=== PATIENT | female | born 2000 ===

== ENCOUNTER 2021-01-13 00:19 | Inpatient (IN) | payer MEDICAID ==
[2021-01-13] MEDS ORDERED: Tranexamic Acid 1,000 MG in Sodium Chloride 0.9% 100 ML IV PRN (01:31)
[2021-01-13] MEDS ORDERED: Sodium Chloride 0.9% 10 ML SDV IV PRN (01:31)
[2021-01-13] MEDS ORDERED: Misoprostol 200 MCG Tab PO PRN (01:31)
[2021-01-13] MEDS ORDERED: Sodium Chloride 0.9% 2.5 ML Syringe FLUSH PRN (01:31)
[2021-01-13] MEDS ORDERED: Lidocaine 1% 50 ML MDV INJECT PRN (01:31)
[2021-01-13] MEDS ORDERED: Water For Irrigation,Sterile 1,000 ML Container IRR PRN (01:31)
[2021-01-13] MEDS ORDERED: Misoprostol 25 MCG (1/4 of 100 MCG) Tab VAG PRN (01:31)
[2021-01-13] MEDS ORDERED: Nalbuphine 10 MG/1 ML Vial IVPUSH PRN (01:31)
[2021-01-13] MEDS ORDERED: Methylergonovine 0.2 MG/1 ML Amp IM PRN (01:31)
[2021-01-13] MEDS ORDERED: Sodium Chloride 0.9% 10 ML Syringe FLUSH PRN (01:31)
[2021-01-13] MEDS ORDERED: Carboprost Tromethamine 250 MCG/1 ML Amp IM PRN (01:31)
[2021-01-13] MEDS ORDERED: Terbutaline 1 MG/ML SDV SUBCUT PRN (01:31)
[2021-01-13] MEDS ORDERED: Misoprostol 25 MCG (1/4 of 100 MCG) Tab PO ONE ×2 (01:37→06:00)
[2021-01-13] MEDS ORDERED: Oxytocin/0.9 % Sodium Chloride 30 UNIT/500 ML BAG IV SCH ×2 (01:45)
[2021-01-13] MEDS: Misoprostol 25 MCG (1/4 of 100 MCG) Tab VAG PRN ×2 (06:05→10:19)
--- NOTE | 2021-01-13 08:31 | PCM.LDHP ---
L&D History of Present Illness - General Date of Service: 01/13/21 Admit Problem/Dx: Patient Status Order with Admit Dx/Problem 01/13/21 01:31 Patient Status [ADT] Routine Admission Diagnosis/Problem Admission Diagnosis/Problem 01/13/21 08:26 presenting to L&D at 39 2/7 weeks (DWAINE: 01/18/21 by LMP and early u/s) for elective induction of labor. A+, Rubella immune, GBS negative. notable for maternal obesity; otherwise uneventful course. Vertex by gildardo's and confirmed by bedside TAUS in-office. Source of Information: Patient History Limitations: Reports: No Limitations - Related Data Allergies/Adverse Reactions: Allergies Allergy/AdvReac Type Severity Reaction Status Date / Time Sulfa (Sulfonamide Allergy Unknown Rash Unverified 01/13/21 01:27 Antibiotics) Home Medications: Home Meds Pnv No.95/Ferrous Fum/Folic AC [ Tablet] 1 tab PO BEDTIME 10/09/20 [History] Magnesium 1 tab PO BEDTIME 11/16/20 [History] Past Medical History - Past Health History Medical/Surgical History: Denies Medical/Surgical History Social & Family History - Family History Family Medical History: No Pertinent Family History - Tobacco Use Tobacco Use Status *Q: Former Tobacco User Used Tobacco, but Quit: Yes Month/Year Tobacco Last Used: 12th week of preg Second Hand Smoke Exposure: Yes - Caffeine Use Caffeine Use: Reports: None - Recreational Drug Use Recreational Drug Use: No H&P Review of Systems - Review of Systems: Review Of Systems: See Below General: Reports: No Symptoms HEENT: Reports: No Symptoms Pulmonary: Reports: No Symptoms Cardiovascular: Reports: No Symptoms Gastrointestinal: Reports: No Symptoms Genitourinary: Reports: No Symptoms Musculoskeletal: Reports: No Symptoms Skin: Reports: No Symptoms Psychiatric: Reports: No Symptoms Neurological: Reports: No Symptoms Hematologic/Lymphatic: Reports: No Symptoms Immunologic: Reports: No Symptoms L&D Exam - Exam Exam: See Below - Vital Signs Weight: 230 lb - OB Specific Contraction Intensity: Mild to Moderate Movement: Active Heart Tones: Present Heart Rate (FHR) Variability: Moderate (6-25 bmp) Presentation: Vertex - Diamond Score Diamond Score Cervix Position: Anterior Diamond Score Consistency: Medium Diamond Score Effacement: 51-70% Diamond Score Dilation: 1-2 cm Diamond Score Infant's Station: -3 Diamond Score Total: 6 - Exam General: Alert, Oriented, Cooperative Lungs: Normal Respiratory Effort Cardiovascular: Regular Rate, Regular Rhythm GI/Abdominal Exam: Soft, Non-Tender Rectal Exam: Deferred Genitourinary: Deferred Back Exam: Normal Inspection, Full Range of Motion Extremities: Normal Inspection, Normal Range of Motion, Non-Tender, Normal Capillary Refill Skin: Warm, Dry, Intact Neurological: Strength Equal Bilateral, Normal Gait, Normal Speech, Normal Tone, Sensation Intact Psychiatric: Alert, Normal Affect, Normal Mood - Patient Data Lab Results Last 24 hrs: Laboratory Results - last 24 hr 01/13/21 01/13/21 01/13/21 Range/Units 01:15 01:15 01:15 WBC 9.71 (4.0-11.0) K/uL RBC 4.58 (4.30-5.90) M/uL Hgb 12.6 (12.0-16.0) g/dL Hct 38.2 (36.0-46.0) % MCV 83.4 (80.0-98.0) fL MCH 27.5 (27.0-32.0) pg MCHC 33.0 (31.0-37.0) g/dL RDW Std Deviation 44.5 (28.0-62.0) fl RDW Coeff of Hazel 15 (11.0-15.0) % Plt Count 224 (150-400) K/uL MPV 10.60 (7.40-12.00) fL Nucleated RBC % 0.0 /100WBC Nucleated RBCs # 0 K/uL SARS-CoV-2 RNA (JHONY) NEGATIVE (NEGATIVE) Blood Type A POSITIVE Antibody Screen NEGATIVE Result Diagrams: 01/13/21 01:15 - Problem List (1) Supervision of normal IUP (intrauterine ) in multigravida SNOMED Code(s): 711677308, 819823297, 475926851 ICD Code: Z34.80 - ENCOUNTER FOR SUPRVSN OF NORMAL , UNSP TRIMESTER Status: Acute Priority: High Current Visit: Yes Qualifiers: Trimester: third trimester Qualified Code(s): Z34.83 - Encounter for supervision of other normal , third trimester (2) Maternal obesity affecting , antepartum SNOMED Code(s): 956679837834, 418830581570 ICD Code: O99.210 - OBESITY COMPLICATING , UNSPECIFIED TRIMESTER Status: Acute Priority: High Current Visit: Yes Problem List Initiated/Reviewed/Updated: Yes Orders Last 24hrs: Active Orders 24 hr Category Date Time Status Patient Status [ADT] Routine ADT 01/13/21 01:31 Active Bedrest Bathroom Privileges [RC] ASDIRECTED Care 01/13/21 01:31 Active Communication Order [RC] ASDIRECTED Care 01/13/21 01:31 Active Communication Order [RC] ASDIRECTED Care 01/13/21 01:31 Active Communication Order [RC] ASDIRECTED Care 01/13/21 01:31 Active Heart Tones [RC] CONTINUOUS Care 01/13/21 01:31 Active Non Stress Test [RC] PER UNIT ROUTINE Care 01/13/21 01:31 Active May Shower [RC] ASDIRECTED Care 01/13/21 01:31 Active Notify Provider [RC] PRN Care 01/13/21 01:31 Active Notify Provider [RC] PRN Care 01/13/21 01:31 Active Notify Provider [RC] PRN Care 01/13/21 01:31 Active Notify Provider [RC] STAT Care 01/13/21 01:31 Active Oxygen Therapy [RC] ASDIRECTED Care 01/13/21 01:31 Active Up ad Елена [RC] ASDIRECTED Care 01/13/21 01:31 Active Vaginal Exam [RC] PRN Care 01/13/21 01:31 Active Vaginal Exam [RC] PRN Care 01/13/21 01:31 Active Vital Signs [RC] PER UNIT ROUTINE Care 01/13/21 01:31 Active Vital Signs [RC] PER UNIT ROUTINE Care 01/13/21 01:31 Active RPR (SYPHILIS SERO) W/ RFLX [REF] Routine Lab 01/13/21 01:15 Received Butorphanol [Stadol] Med 01/13/21 01:31 Active 1 mg IVPUSH Q1H PRN Carboprost Tromethamine [Hemabate DS] Med 01/13/21 01:31 Active 250 mcg IM ASDIRECTED PRN Lactated Ringers [Ringers, Lactated] 1,000 ml Med 01/13/21 01:45 Active IV ASDIRECTED Lidocaine 1% [Xylocaine 1%] Med 01/13/21 01:31 Active 50 ml INJECT ONETIME PRN Methylergonovine [Methergine] Med 01/13/21 01:31 Active 0.2 mg IM ASDIRECTED PRN Nalbuphine [Nubain] Med 01/13/21 01:31 Active 10 mg IVPUSH Q1H PRN Oxytocin/0.9 % Sodium Chloride [Oxytocin 30 Unit/500 ML Med 01/13/21 01:45 Active -NS] 30 unit in 500 ml IV TITRATE Oxytocin/0.9 % Sodium Chloride [Oxytocin 30 Unit/500 ML Med 01/13/21 01:45 Active -NS] 30 unit in 500 ml IV TITRATE Sodium Chloride 0.9% [Normal Saline] Med 01/13/21 01:31 Active 10 ml IV ASDIRECTED PRN Sodium Chloride 0.9% [Saline Flush] Med 01/13/21 01:31 Active 10 ml FLUSH ASDIRECTED PRN Sodium Chloride 0.9% [Saline Flush] Med 01/13/21 01:31 Active 2.5 ml FLUSH ASDIRECTED PRN Terbutaline [Brethine] Med 01/13/21 01:31 Active 0.25 mg SUBCUT ASDIRECTED PRN Tranexamic Acid [Cyklokapron] 1,000 mg Med 01/13/21 01:31 Active Sodium Chloride 0.9% [Normal Saline] 100 ml IV ONETIME Water For Irrigation,Sterile [Sterile Water for Med 01/13/21 01:31 Active Irrigation] 1,000 ml IRR ASDIRECTED PRN miSOPROStoL [Cytotec] Med 01/13/21 01:31 Active 200 mcg PO ONETIME PRN miSOPROStoL [Cytotec] Med 01/13/21 01:31 Active 25 mcg VAG ONETIME PRN miSOPROStoL [Cytotec] Med 01/13/21 01:31 Active 25 mcg VAG Q4H PRN Scalp Electrode [WOMSER] Per Unit Routine Oth 01/13/21 01:31 Ordered Medication Administration Instruction [OM.PC] Q3H Oth 01/13/21 01:45 Ordered Peripheral IV Insertion Adult [OM.PC] Routine Oth 01/13/21 01:31 Ordered Resuscitation Status Routine Resus Stat 01/13/21 01:31 Ordered Medication Orders Butorphanol Tartrate (Butorphanol 1 Mg/Ml Sdv) 1 mg IVPUSH Q1H PRN PRN Reason: Pain (severe 7-10) Carboprost Tromethamine (Carboprost Tromethamine 250 Mcg/1 Ml Amp) 250 mcg IM ASDIRECTED PRN PRN Reason: Post Hemorrhage Oxytocin/Sodium Chloride (Oxytocin 30 Unit/500 Ml-Ns) 30 unit in 500 mls @ 999 mls/hr IV TITRATE ROSALIA Tranexamic Acid 1,000 mg/ (Sodium Chloride) 110 mls @ 660 mls/hr IV ONETIME PRN PRN Reason: Bleeding Oxytocin/Sodium Chloride (Oxytocin 30 Unit/500 Ml-Ns) 30 unit in 500 mls @ 2 mls/hr IV TITRATE ROSALIA; Protocol Lactated Ringer's (Ringers, Lactated) 1,000 mls @ 150 mls/hr IV ASDIRECTED ROSALIA Lidocaine HCl (Lidocaine 1% 50 Ml Mdv) 50 ml INJECT ONETIME PRN PRN Reason: Laceration repair Methylergonovine Maleate (Methylergonovine 0.2 Mg/1 Ml Amp) 0.2 mg IM ASDIRECTED PRN PRN Reason: Post Hemorrhage Misoprostol (Misoprostol 200 Mcg Tab) 200 mcg PO ONETIME PRN PRN Reason: Post Hemorrhage Misoprostol (Misoprostol 25 Mcg (1/4 Of 100 Mcg) Tab) 25 mcg VAG ONETIME PRN PRN Reason: Cervical Ripening Last Admin: 01/13/21 01:56 Dose: 25 mcg Documented by: ERIKA Misoprostol (Misoprostol 25 Mcg (1/4 Of 100 Mcg) Tab) 25 mcg VAG Q4H PRN PRN Reason: Cervical Ripening Last Admin: 01/13/21 06:05 Dose: 25 mcg Documented by: ERIKA Nalbuphine HCl (Nalbuphine 10 Mg/1 Ml Vial) 10 mg IVPUSH Q1H PRN PRN Reason: Pain (severe 7-10) Sodium Chloride (Sodium Chloride 0.9% 10 Ml Syringe) 10 ml FLUSH ASDIRECTED PRN PRN Reason: Keep Vein Open Sodium Chloride (Sodium Chloride 0.9% 2.5 Ml Syringe) 2.5 ml FLUSH ASDIRECTED PRN PRN Reason: Keep Vein Open Sodium Chloride (Sodium Chloride 0.9% 10 Ml Sdv) 10 ml IV ASDIRECTED PRN PRN Reason: IV Use Sterile Water (Water For Irrigation,Sterile 1,000 Ml Container) 1,000 ml IRR ASDIRECTED PRN PRN Reason: delivery Terbutaline Sulfate (Terbutaline 1 Mg/Ml Sdv) 0.25 mg SUBCUT ASDIRECTED PRN PRN Reason: Tacysystole Assessment/Plan Comment:: Admit A: presenting to L&D at 39 2/7 weeks (DWAINE: 01/18/21 by LMP and early u/s) for elective induction of labor. A+, Rubella immune, GBS negative. notable for maternal obesity; otherwise uneventful course. Vertex by gildardo's and confirmed by bedside TAUS in-office. SVE at 0600 per nurse re port: 1-2 cm/60%/-3, medium, anterior P: Anticipate ; cytotec to pitocin PRN; epidural PRN; Dr. Correa updated.
[2021-01-13] MEDS ORDERED: Misoprostol 25 MCG (1/4 of 100 MCG) Tab PO PRN (09:57)
[2021-01-13] MEDS: Butorphanol 1 MG/ML SDV IVPUSH PRN ×2 (10:24→13:11)
[2021-01-13] MEDS: Lactated Ringers 1,000 ML IV SCH ×2 (13:11→14:10)
[2021-01-13] MEDS ORDERED: Ropivacaine HCl/PF 200 ML ONE (14:21)
[2021-01-13] MEDS ORDERED: fentaNYL 100 MCG/2 ML SDV ONE (14:21)
--- NOTE | 2021-01-13 14:46 | PCM.PREANE ---
Preanesthetic Assessment - Anesthesia/Transfusion/Family Hx Anesthesia History: Prior Anesthesia Without Reaction Family History of Anesthesia Reaction: No - Review of Systems Neurological: Other (History of difficult epidural placement with first delivery.) - Physical Assessment NPO Status Date: 01/13/21 NPO Status Time: 11:00 Height: 1.63 m Weight: 104.326 kg - Lab Values: Laboratory Last Values WBC 9.71 K/uL (4.0-11.0) 01/13/21 01:15 RBC 4.58 M/uL (4.30-5.90) 01/13/21 01:15 Hgb 12.6 g/dL (12.0-16.0) 01/13/21 01:15 Hct 38.2 % (36.0-46.0) 01/13/21 01:15 MCV 83.4 fL (80.0-98.0) 01/13/21 01:15 MCH 27.5 pg (27.0-32.0) 01/13/21 01:15 MCHC 33.0 g/dL (31.0-37.0) 01/13/21 01:15 RDW Std Deviation 44.5 fl (28.0-62.0) 01/13/21 01:15 RDW Coeff of Hazel 15 % (11.0-15.0) 01/13/21 01:15 Plt Count 224 K/uL (150-400) 01/13/21 01:15 MPV 10.60 fL (7.40-12.00) 01/13/21 01:15 Nucleated RBC % 0.0 /100WBC 01/13/21 01:15 Nucleated RBCs # 0 K/uL 01/13/21 01:15 SARS-CoV-2 RNA (JHONY) NEGATIVE (NEGATIVE) 01/13/21 01:15 Blood Type A POSITIVE 01/13/21 01:15 Antibody Screen NEGATIVE 01/13/21 01:15 - Allergies Allergies/Adverse Reactions: Allergies Allergy/AdvReac Type Severity Reaction Status Date / Time Sulfa (Sulfonamide Allergy Unknown Rash Verified 01/13/21 09:56 Antibiotics) - Acknowledgements Anesthesia Type Planned: Epidural Pt an Appropriate Candidate for the Planned Anesthesia: Yes Alternatives and Risks of Anesthesia Discussed w Pt/Guardian: Yes Pt/Guardian Understands and Agrees with Anesthesia Plan: Yes PreAnesthesia Questionnaire - Past Health History Medical/Surgical History: Denies Medical/Surgical History - SUBSTANCE USE Tobacco Use Status *Q: Former Tobacco User Tobacco Use Within Last Twelve Months: Cigarettes Second Hand Smoke Exposure: Yes Recreational Drug Use History: No - HOME MEDS Home Medications: Home Meds Pnv No.95/Ferrous Fum/Folic AC [ Tablet] 1 tab PO BEDTIME 10/09/20 [History] Magnesium 1 tab PO BEDTIME 11/16/20 [History] - CURRENT (IN HOUSE) MEDS Current Meds: Current Medications Butorphanol Tartrate (Butorphanol 1 Mg/Ml Sdv) 1 mg IVPUSH Q1H PRN PRN Reason: Pain (severe 7-10) Last Admin: 01/13/21 13:11 Dose: 1 mg Documented by: Carboprost Tromethamine (Carboprost Tromethamine 250 Mcg/1 Ml Amp) 250 mcg IM ASDIRECTED PRN PRN Reason: Post Hemorrhage Oxytocin/Sodium Chloride (Oxytocin 30 Unit/500 Ml-Ns) 30 unit in 500 mls @ 999 mls/hr IV TITRATE ROSALIA Tranexamic Acid 1,000 mg/ (Sodium Chloride) 110 mls @ 660 mls/hr IV ONETIME PRN PRN Reason: Bleeding Oxytocin/Sodium Chloride (Oxytocin 30 Unit/500 Ml-Ns) 30 unit in 500 mls @ 2 mls/hr IV TITRATE ROSALIA; Protocol Lactated Ringer's (Ringers, Lactated) 1,000 mls @ 150 mls/hr IV ASDIRECTED ROSALIA Last Admin: 01/13/21 14:10 Dose: 150 mls/hr Documented by: Lidocaine HCl (Lidocaine 1% 50 Ml Mdv) 50 ml INJECT ONETIME PRN PRN Reason: Laceration repair Methylergonovine Maleate (Methylergonovine 0.2 Mg/1 Ml Amp) 0.2 mg IM ASDIRECTED PRN PRN Reason: Post Hemorrhage Misoprostol (Misoprostol 200 Mcg Tab) 200 mcg PO ONETIME PRN PRN Reason: Post Hemorrhage Misoprostol (Misoprostol 25 Mcg (1/4 Of 100 Mcg) Tab) 25 mcg VAG ONETIME PRN PRN Reason: Cervical Ripening Last Admin: 01/13/21 01:56 Dose: 25 mcg Documented by: Misoprostol (Misoprostol 25 Mcg (1/4 Of 100 Mcg) Tab) 25 mcg VAG Q4H PRN PRN Reason: Cervical Ripening Last Admin: 01/13/21 10:19 Dose: 25 mcg Documented by: Misoprostol (Misoprostol 25 Mcg (1/4 Of 100 Mcg) Tab) 25 mcg PO Q4H PRN PRN Reason: cervical ripening Last Admin: 01/13/21 10:20 Dose: 25 mcg Documented by: Nalbuphine HCl (Nalbuphine 10 Mg/1 Ml Vial) 10 mg IVPUSH Q1H PRN PRN Reason: Pain (severe 7-10) Sodium Chloride (Sodium Chloride 0.9% 10 Ml Syringe) 10 ml FLUSH ASDIRECTED PRN PRN Reason: Keep Vein Open Sodium Chloride (Sodium Chloride 0.9% 2.5 Ml Syringe) 2.5 ml FLUSH ASDIRECTED PRN PRN Reason: Keep Vein Open Sodium Chloride (Sodium Chloride 0.9% 10 Ml Sdv) 10 ml IV ASDIRECTED PRN PRN Reason: IV Use Sterile Water (Water For Irrigation,Sterile 1,000 Ml Container) 1,000 ml IRR ASDIRECTED PRN PRN Reason: delivery Terbutaline Sulfate (Terbutaline 1 Mg/Ml Sdv) 0.25 mg SUBCUT ASDIRECTED PRN PRN Reason: Tacysystole Discontinued Medications Fentanyl (Fentanyl 100 Mcg/2 Ml Sdv) Confirm Administered Dose 200 mcg .ROUTE .STK-MED ONE Stop: 01/13/21 14:22 Ropivacaine (Naropin 0.2%) Confirm Administered Dose 200 mls @ as directed .ROUTE .STK-MED ONE Stop: 01/13/21 14:22 Misoprostol (Misoprostol 25 Mcg (1/4 Of 100 Mcg) Tab) 25 mcg PO ONETIME ONE Stop: 01/13/21 01:38 Last Admin: 01/13/21 01:56 Dose: 25 mcg Documented by: Misoprostol (Misoprostol 25 Mcg (1/4 Of 100 Mcg) Tab) 25 mcg PO ONETIME ONE Stop: 01/13/21 06:01 Last Admin: 01/13/21 06:05 Dose: 25 mcg Documented by:
--- NOTE | 2021-01-13 14:49 | PCM.PRNOTE ---
- Free Text/Narrative Note: Anes NOte Patient requests epidural for L&D. Sitting position. Level L3-L4 midline approach. Sterile technique, chloraprep scrub to lumbar area. Sterile fenestrated drape applied. Epidural space easily achieved single attempt with ease using PETRA technique. PETRA at 3 cm. Cath threaded 5 cm with ease. Cath secured a t skin using sterile clear adhesive dressing. Test 1432 3 cc 1.5% lido with epi negative. 1435 Load 10 cc 0.2% ropiviciane with 1 mcg cc fentanyl in slow divided doses. 1440 Pump started qith 190 cc same solution. Rate is 8 cc hr with 6 cc q 20 min prn bolus. Kell well. Time with patient [id number] Huey Whalen LEAD DENTAL ASSISTANT
[2021-01-13] MEDS ORDERED: Witch Hazel Medicated Pads 40/Jar TOP PRN (19:19)
[2021-01-13] MEDS ORDERED: Bisacodyl 10 MG Supp RECTAL PRN (19:19)
[2021-01-13] MEDS ORDERED: Ibuprofen 400 MG Tab PO PRN (19:19)
[2021-01-13] MEDS ORDERED: Docusate Sodium 100 MG Cap PO PRN (19:19)
[2021-01-13] MEDS ORDERED: oxyCODONE 5 MG Tab PO PRN (19:19)
[2021-01-13] MEDS ORDERED: Acetaminophen 500 MG Tab PO PRN (19:19)
[2021-01-13] MEDS ORDERED: Lanolin 100% Cream 7 GM Tube TOP PRN (19:19)
[2021-01-13] MEDS ORDERED: Benzocaine/Menthol 20%-0.5% Spray 78 GM Cannister TOP PRN (19:19)
--- NOTE | 2021-01-13 19:27 | PCM.DEL ---
L & D Note - General Info Date of Service: 01/13/21 Mother's Due Date: 01/18/21 - Delivery Note Labor: Augmented by ARM Cervical Ripening Method: Misoprostil Delivery Outcome: Livebirth Infant Delivery Method: Spontaneous Vaginal Delivery-Single Presentation: Left Occiput Anterior (DOMINGO) Nuchal Cord: None Anesthesia Type: Epidural Amniotic Fluid Description: Clear Episiotomy Type: None Laceration: None Cord: 3 Vessels Estimated Blood Loss: 100 Resuscitation Needed: No : Bulb Syringe Score 1 min: 8 Score 5 min: 9 Delivery Comments (Free Text/Narrative):: Dictation #[id number] - General Info Date of Service: 01/13/21 Admission Dx/Problem (Free Text): Patient Status Order with Admit Dx/Problem 01/13/21 01:31 Patient Status [ADT] Routine Admission Diagnosis/Problem Admission Diagnosis/Problem 01/13/21 08:26 presenting to L&D at 39 2/7 weeks (DWAINE: 01/18/21 by LMP and early u/s) for elective induction of labor. A+, Rubella immune, GBS negative. notable for maternal obesity; otherwise uneventful course. Vertex by gildardo's and confirmed by bedside TAUS in-office. - Patient Data Weight - Most Recent: 230 lb Lab Results Last 24 Hours: Laboratory Results - last 24 hr 01/13/21 01/13/21 01/13/21 Range/Units 01:15 01:15 01:15 WBC 9.71 (4.0-11.0) K/uL RBC 4.58 (4.30-5.90) M/uL Hgb 12.6 (12.0-16.0) g/dL Hct 38.2 (36.0-46.0) % MCV 83.4 (80.0-98.0) fL MCH 27.5 (27.0-32.0) pg MCHC 33.0 (31.0-37.0) g/dL RDW Std Deviation 44.5 (28.0-62.0) fl RDW Coeff of Hazel 15 (11.0-15.0) % Plt Count 224 (150-400) K/uL MPV 10.60 (7.40-12.00) fL Nucleated RBC % 0.0 /100WBC Nucleated RBCs # 0 K/uL SARS-CoV-2 RNA (JHONY) NEGATIVE (NEGATIVE) Blood Type A POSITIVE Antibody Screen NEGATIVE Med Orders - Current: Current Medications Butorphanol Tartrate (Butorphanol 1 Mg/Ml Sdv) 1 mg IVPUSH Q1H PRN PRN Reason: Pain (severe 7-10) Last Admin: 01/13/21 13:11 Dose: 1 mg Documented by: Carboprost Tromethamine (Carboprost Tromethamine 250 Mcg/1 Ml Amp) 250 mcg IM ASDIRECTED PRN PRN Reason: Post Hemorrhage Oxytocin/Sodium Chloride (Oxytocin 30 Unit/500 Ml-Ns) 30 unit in 500 mls @ 999 mls/hr IV TITRATE ROSALIA Tranexamic Acid 1,000 mg/ (Sodium Chloride) 110 mls @ 660 mls/hr IV ONETIME PRN PRN Reason: Bleeding Oxytocin/Sodium Chloride (Oxytocin 30 Unit/500 Ml-Ns) 30 unit in 500 mls @ 2 mls/hr IV TITRATE ROSALIA; Protocol Lactated Ringer's (Ringers, Lactated) 1,000 mls @ 150 mls/hr IV ASDIRECTED ROSALIA Last Admin: 01/13/21 14:10 Dose: 150 mls/hr Documented by: Lidocaine HCl (Lidocaine 1% 50 Ml Mdv) 50 ml INJECT ONETIME PRN PRN Reason: Laceration repair Methylergonovine Maleate (Methylergonovine 0.2 Mg/1 Ml Amp) 0.2 mg IM ASDIRECTED PRN PRN Reason: Post Hemorrhage Misoprostol (Misoprostol 200 Mcg Tab) 200 mcg PO ONETIME PRN PRN Reason: Post Hemorrhage Misoprostol (Misoprostol 25 Mcg (1/4 Of 100 Mcg) Tab) 25 mcg VAG ONETIME PRN PRN Reason: Cervical Ripening Last Admin: 01/13/21 01:56 Dose: 25 mcg Documented by: Misoprostol (Misoprostol 25 Mcg (1/4 Of 100 Mcg) Tab) 25 mcg VAG Q4H PRN PRN Reason: Cervical Ripening Last Admin: 01/13/21 10:19 Dose: 25 mcg Documented by: Misoprostol (Misoprostol 25 Mcg (1/4 Of 100 Mcg) Tab) 25 mcg PO Q4H PRN PRN Reason: cervical ripening Last Admin: 01/13/21 10:20 Dose: 25 mcg Documented by: Nalbuphine HCl (Nalbuphine 10 Mg/1 Ml Vial) 10 mg IVPUSH Q1H PRN PRN Reason: Pain (severe 7-10) Sodium Chloride (Sodium Chloride 0.9% 10 Ml Syringe) 10 ml FLUSH ASDIRECTED PRN PRN Reason: Keep Vein Open Sodium Chloride (Sodium Chloride 0.9% 2.5 Ml Syringe) 2.5 ml FLUSH ASDIRECTED PRN PRN Reason: Keep Vein Open Sodium Chloride (Sodium Chloride 0.9% 10 Ml Sdv) 10 ml IV ASDIRECTED PRN PRN Reason: IV Use Sterile Water (Water For Irrigation,Sterile 1,000 Ml Container) 1,000 ml IRR ASDIRECTED PRN PRN Reason: delivery Terbutaline Sulfate (Terbutaline 1 Mg/Ml Sdv) 0.25 mg SUBCUT ASDIRECTED PRN PRN Reason: Tacysystole Discontinued Medications Fentanyl (Fentanyl 100 Mcg/2 Ml Sdv) Confirm Administered Dose 200 mcg .ROUTE .STK-MED ONE Stop: 01/13/21 14:22 Last Admin: 01/13/21 16:46 Dose: Not Given Documented by: Ropivacaine (Naropin 0.2%) Confirm Administered Dose 200 mls @ as directed .ROUTE .STK-MED ONE Stop: 01/13/21 14:22 Last Admin: 01/13/21 16:46 Dose: Not Given Documented by: Misoprostol (Misoprostol 25 Mcg (1/4 Of 100 Mcg) Tab) 25 mcg PO ONETIME ONE Stop: 01/13/21 01:38 Last Admin: 01/13/21 01:56 Dose: 25 mcg Documented by: Misoprostol (Misoprostol 25 Mcg (1/4 Of 100 Mcg) Tab) 25 mcg PO ONETIME ONE Stop: 01/13/21 06:01 Last Admin: 01/13/21 06:05 Dose: 25 mcg Documented by: - Problem List Review Problem List Initiated/Reviewed/Updated: Yes - My Orders Last 24 Hours: My Active Orders 01/13/21 19:19 Acetaminophen [Tylenol Extra Strength] 1,000 mg PO Q4H PRN Acetaminophen [Tylenol Extra Strength] 500 mg PO Q4H PRN Benzocaine/Menthol [Dermoplast Pain Relief 20%-0.5% [place]] 78 gm TOP ASDIRECTED PRN Docusate Sodium [Colace] 100 mg PO Q12H PRN Ibuprofen [Motrin] 400 mg PO Q4H PRN Ibuprofen [Motrin] 800 mg PO Q6H PRN Lanolin [Lansinoh HPA] See Dose Instructions TOP ASDIRECTED PRN bisacodyL [Dulcolax] 10 mg RECTAL ONETIME PRN oxyCODONE 5 mg PO Q2H PRN witch Josep [Tucks] 1 pad TOP ASDIRECTED PRN 01/13/21 19:20 Patient Status [ADT] Routine May Shower [RC] ASDIRECTED Up ad Елена [RC] ASDIRECTED Vital Signs [RC] PER UNIT ROUTINE Assess Lochia [WOMSER] Per Unit Routine Assess Uterine Involution [WOMSER] Per Unit Routine Peripheral IV Discontinue [OM.PC] Routine 01/14/21 05:11 HEMOGLOBIN/HEMATOCRIT,HH [HEME] Timed - Assessment Assessment:: 20 year old s/p - Plan Plan:: Routine cares * Rh positive, rubella immune, GBS negative * PO pain medications ordered PRN * Regular diet as tolerated * Encourage fluid intake and ambulation when able * Plans to breast feed, nursing assistance as needed Dispo: stable. Admit to floor and anticipate routine cares.
--- NOTE | 2021-01-13 20:52 | OR ---
SURGEON: RO CORREA MD DATE OF PROCEDURE: 01/13/2021 PREOPERATIVE DIAGNOSES: 1. Term intrauterine gestation at 39 weeks 2 days. 2. Maternal obesity. POSTOPERATIVE DIAGNOSES: 1. Term intrauterine gestation at 39 weeks 2 days. 2. Maternal obesity. PROCEDURE: Spontaneous vaginal delivery. PRIMARY SURGEON: Ro Correa MD COLOR MAKER DYER: None. ANESTHESIA: Epidural. COMPLICATIONS: None known. ESTIMATED BLOOD LOSS: 100 mL. INDICATIONS: 20-year-old, 3, para 1. The patient presented to Labor and Delivery at midnight on 01/13/2021 for planned elective induction per Dr. Navarrete. FINDINGS: Normal-appearing female infant in cephalic presentation. Clear amniotic fluid. scores of 8 and 9, weight not yet available at time of dictation. Intact cervix, vagina, and perineal pretty. BRIEF DESCRIPTION OF PROCEDURE: The patient was admitted to Labor and Delivery early on the morning of 01/13/2021. She received three consecutive doses of vaginal Cytotec and labor progressed spontaneously. She received an epidural and AROM was performed shortly thereafter. The patient tolerated procedure well and clear fluid was noted. At approximately 1845, I was notified that the patient was completely dilated and feeling pressure the urge to push. With the patient in dorsal lithotomy position, she pushed well over three contractions and infant's head delivered in occiput anterior position, restitute DOMINGO. 's anterior shoulder delivered without difficulty, followed quickly by posterior shoulder and the rest of the 's body. After approximately 30 seconds, the umbilical cord was clamped and cut and handed off to waiting nursing staff per patient request. Arterial venous and cord blood gases were then obtained. The placenta was then expressed intact. Inspection of the cervix, vaginal pretty, and perineum was performed and noted to be intact. Fundal massage was then performed. Fundus noted to be located below the umbilicus and firm. EBL 100 mL. Sponge, lap, and needle count were correct x2. The patient tolerated the procedure well and is recovering in labor room with infant. NIRMAL / DAVID /[id number] MTDDenia
[2021-01-14] MEDS: Acetaminophen 500 MG Tab PO PRN ×3 (00:43→12:50)
[2021-01-14] MEDS: Ibuprofen 800 MG Tab PO PRN ×2 (03:54→16:28)
--- NOTE | 2021-01-14 05:43 | PCM.PNPP ---
- General Info Date of Service: 01/14/21 Admission Dx/Problem (Free Text): Patient Status Order with Admit Dx/Problem 01/13/21 01:31 Patient Status [ADT] Routine Admission Diagnosis/Problem Admission Diagnosis/Problem 01/13/21 08:26 presenting to L&D at 39 2/7 weeks (DWAINE: 01/18/21 by LMP and early u/s) for elective induction of labor. A+, Rubella immune, GBS negative. notable for maternal obesity; otherwise uneventful course. Vertex by gildardo's and confirmed by bedside TAUS in-office. Subjective Update: Resting comfortably in bed. Pain well controlled. Ambulating and voiding without difficulty. Lochia decreasing. Tolerating regular diet. baby, going well per patient. - General Info Date of Service: 01/14/21 - Patient Data Vital Signs - Most Recent: Last Vital Signs Temp 98.2 F 01/14/21 04:00 Pulse 86 01/14/21 04:00 Resp 17 01/14/21 04:00 BP 128/74 01/14/21 04:00 Pulse Ox 97 01/14/21 04:00 Weight - Most Recent: 230 lb Lab Results - Last 24 Hours: Laboratory Results - last 24 hr 01/13/21 Range/Units 19:06 Cord VBG pH 7.296 (7.25-7.45) Cord VBG Base Excess -5 (-10--2) Med Orders - Current: Current Medications Acetaminophen (Acetaminophen 500 Mg Tab) 500 mg PO Q4H PRN PRN Reason: Pain (mild 1-3) Acetaminophen (Acetaminophen 500 Mg Tab) 1,000 mg PO Q4H PRN PRN Reason: Pain (mild 1-3) Last Admin: 01/14/21 00:43 Dose: 1,000 mg Documented by: Benzocaine/Menthol (Benzocaine/Menthol 20%-0.5% Walsh 78 Gm Cannister) 0 gm TOP ASDIRECTED PRN PRN Reason: Perineal Comfort Measure Bisacodyl (Bisacodyl 10 Mg Supp) 10 mg RECTAL ONETIME PRN PRN Reason: Constipation Butorphanol Tartrate (Butorphanol 1 Mg/Ml Sdv) 1 mg IVPUSH Q1H PRN PRN Reason: Pain (severe 7-10) Last Admin: 01/13/21 13:11 Dose: 1 mg Documented by: Carboprost Tromethamine (Carboprost Tromethamine 250 Mcg/1 Ml Amp) 250 mcg IM ASDIRECTED PRN PRN Reason: Post Hemorrhage Docusate Sodium (Docusate Sodium 100 Mg Cap) 100 mg PO Q12H PRN PRN Reason: Constipation Emollient Ointment (Lanolin 100% Cream 7 Gm Tube) 0 gm TOP ASDIRECTED PRN PRN Reason: Sore Nipples Last Admin: 01/14/21 00:45 Dose: 1 tube Documented by: Oxytocin/Sodium Chloride (Oxytocin 30 Unit/500 Ml-Ns) 30 unit in 500 mls @ 999 mls/hr IV TITRATE ROSALIA Tranexamic Acid 1,000 mg/ (Sodium Chloride) 110 mls @ 660 mls/hr IV ONETIME PRN PRN Reason: Bleeding Oxytocin/Sodium Chloride (Oxytocin 30 Unit/500 Ml-Ns) 30 unit in 500 mls @ 2 mls/hr IV TITRATE ROSALIA; Protocol Lactated Ringer's (Ringers, Lactated) 1,000 mls @ 150 mls/hr IV ASDIRECTED ROSALIA Last Admin: 01/13/21 14:10 Dose: 150 mls/hr Documented by: Ibuprofen (Ibuprofen 400 Mg Tab) 400 mg PO Q4H PRN PRN Reason: Pain (mild 1-3) Ibuprofen (Ibuprofen 800 Mg Tab) 800 mg PO Q6H PRN PRN Reason: Pain (mild 1-3) Last Admin: 01/14/21 03:54 Dose: 800 mg Documented by: Lidocaine HCl (Lidocaine 1% 50 Ml Mdv) 50 ml INJECT ONETIME PRN PRN Reason: Laceration repair Methylergonovine Maleate (Methylergonovine 0.2 Mg/1 Ml Amp) 0.2 mg IM ASDIRECTED PRN PRN Reason: Post Hemorrhage Misoprostol (Misoprostol 200 Mcg Tab) 200 mcg PO ONETIME PRN PRN Reason: Post Hemorrhage Misoprostol (Misoprostol 25 Mcg (1/4 Of 100 Mcg) Tab) 25 mcg VAG ONETIME PRN PRN Reason: Cervical Ripening Last Admin: 01/13/21 01:56 Dose: 25 mcg Documented by: Misoprostol (Misoprostol 25 Mcg (1/4 Of 100 Mcg) Tab) 25 mcg VAG Q4H PRN PRN Reason: Cervical Ripening Last Admin: 01/13/21 10:19 Dose: 25 mcg Documented by: Misoprostol (Misoprostol 25 Mcg (1/4 Of 100 Mcg) Tab) 25 mcg PO Q4H PRN PRN Reason: cervical ripening Last Admin: 01/13/21 10:20 Dose: 25 mcg Documented by: Nalbuphine HCl (Nalbuphine 10 Mg/1 Ml Vial) 10 mg IVPUSH Q1H PRN PRN Reason: Pain (severe 7-10) Oxycodone HCl (Oxycodone 5 Mg Tab) 5 mg PO Q2H PRN PRN Reason: Pain (severe 7-10) Sodium Chloride (Sodium Chloride 0.9% 10 Ml Syringe) 10 ml FLUSH ASDIRECTED PRN PRN Reason: Keep Vein Open Sodium Chloride (Sodium Chloride 0.9% 2.5 Ml Syringe) 2.5 ml FLUSH ASDIRECTED PRN PRN Reason: Keep Vein Open Sodium Chloride (Sodium Chloride 0.9% 10 Ml Sdv) 10 ml IV ASDIRECTED PRN PRN Reason: IV Use Sterile Water (Water For Irrigation,Sterile 1,000 Ml Container) 1,000 ml IRR ASDIRECTED PRN PRN Reason: delivery Terbutaline Sulfate (Terbutaline 1 Mg/Ml Sdv) 0.25 mg SUBCUT ASDIRECTED PRN PRN Reason: Tacysystole Witch Juliette (Witch Juliette Medicated Pads 40/Jar) 1 pad TOP ASDIRECTED PRN PRN Reason: comfort care Discontinued Medications Fentanyl (Fentanyl 100 Mcg/2 Ml Sdv) Confirm Administered Dose 200 mcg .ROUTE .STK-MED ONE Stop: 01/13/21 14:22 Last Admin: 01/13/21 16:46 Dose: Not Given Documented by: Ropivacaine (Naropin 0.2%) Confirm Administered Dose 200 mls @ as directed .ROUTE .STK-MED ONE Stop: 01/13/21 14:22 Last Admin: 01/13/21 16:46 Dose: Not Given Documented by: Misoprostol (Misoprostol 25 Mcg (1/4 Of 100 Mcg) Tab) 25 mcg PO ONETIME ONE Stop: 01/13/21 01:38 Last Admin: 01/13/21 01:56 Dose: 25 mcg Documented by: Misoprostol (Misoprostol 25 Mcg (1/4 Of 100 Mcg) Tab) 25 mcg PO ONETIME ONE Stop: 01/13/21 06:01 Last Admin: 01/13/21 06:05 Dose: 25 mcg Documented by: - Infant Interaction Infant Disposition, : at Bedside Feeding: Breastfed ; Nursed Well Support Person: Significant Other - Recovery Exam Fundal Tone: Firm Fundal Level: 1 Fingerbreadths Below Umbilicus Fundal Placement: Midline Lochia Amount: Scant, Small Lochia Color: Rubra/Red Perineum Description: Intact, Minimal Bruising/Swelling Bladder Status: Voiding - Exam General: Alert Lungs: Normal Respiratory Effort Cardiovascular: Regular Rate GI/Abdominal Exam: Soft, Non-Tender Extremities: Normal Range of Motion, Non-Tender, Pedal Edema (1+) Skin: Warm, Dry, Intact Neurological: No New Focal Deficit Psy/Mental Status: Normal Mood - Problem List Review Problem List Initiated/Reviewed/Updated: Yes - My Orders Last 24 Hours: My Active Orders 01/13/21 19:19 Acetaminophen [Tylenol Extra Strength] 1,000 mg PO Q4H PRN Acetaminophen [Tylenol Extra Strength] 500 mg PO Q4H PRN Benzocaine/Menthol [Dermoplast Pain Relief 20%-0.5% Walsh] 0 gm TOP ASDIRECTED PRN Docusate Sodium [Colace] 100 mg PO Q12H PRN Ibuprofen [Motrin] 400 mg PO Q4H PRN Ibuprofen [Motrin] 800 mg PO Q6H PRN Lanolin [Lansinoh HPA] See Dose Instructions TOP ASDIRECTED PRN bisacodyL [Dulcolax] 10 mg RECTAL ONETIME PRN oxyCODONE 5 mg PO Q2H PRN witch Juliette [Tucks] 1 pad TOP ASDIRECTED PRN 01/13/21 19:20 Patient Status [ADT] Routine May Shower [RC] ASDIRECTED Up ad Елена [RC] ASDIRECTED Vital Signs [RC] PER UNIT ROUTINE Assess Lochia [WOMSER] Per Unit Routine Assess Uterine Involution [WOMSER] Per Unit Routine Peripheral IV Discontinue [OM.PC] Routine 01/14/21 05:11 HEMOGLOBIN/HEMATOCRIT,HH [HEME] Routine - Assessment Assessment:: 20 year old PPD1 s/p - Plan Plan:: Routine cares * Rh positive, rubella immune, GBS negative * PO pain medications ordered PRN * Regular diet as tolerated * Encourage fluid intake and ambulation when able * Plans to breast feed, nursing assistance as needed Dispo: stable. Anticipate discharge today pending maternal/infant status. Reviewed discharge instructions and precautions. Patient to follow up at [facility] for appointment in 4 weeks.
--- NOTE | 2021-01-14 07:00 | PCM48HPAN ---
Post Anesthesia Note - EVALUATION WITHIN 48HRS OF ANESTHETIC Vital Signs in Normal Range: Yes Patient Participated in Evaluation: Yes Respiratory Function Stable: Yes Airway Patent: Yes Cardiovascular Function Stable: Yes Hydration Status Stable: Yes Pain Control Satisfactory: Yes Nausea and Vomiting Control Satisfactory: Yes Mental Status Recovered: Yes Vital Signs: Last Vital Signs Temp 36.8 C 01/14/21 04:00 Pulse 86 01/14/21 04:00 Resp 17 01/14/21 04:00 BP 128/74 01/14/21 04:00 Pulse Ox 97 01/14/21 04:00
== END 2021-01-14 21:08 | disposition home or self-care (01) | DRG 807 ==
LOC: MW.OBCHECK 00:19 → MW.OB 00:20 → MW.OBCHECK 01:31 → OBSVTOIN 19:06 → MW.OB 22:08
PROVIDERS: ADMIT Obstetrics & Gynecology; ATTEND Obstetrics & Gynecology
PROC: 10E0XZZ Delivery of Products of Conception, External Approach (ICD-10-PCS; principal; 2021-01-13)
PROC: 10907ZC Drainage of Amniotic Fluid, Therapeutic from Products of Conception, Via Natural or Artificial Opening (ICD-10-PCS; 2021-01-13)
PROC: 3E0P7VZ Introduction of Hormone into Female Reproductive, Via Natural or Artificial Opening (ICD-10-PCS; 2021-01-13)
PROC: 3E0R3BZ Introduction of Anesthetic Agent into Spinal Canal, Percutaneous Approach (ICD-10-PCS; 2021-01-13)
PROC: 00HU33Z Insertion of Infusion Device into Spinal Canal, Percutaneous Approach (ICD-10-PCS; 2021-01-13)
DX: O99.214 Obesity complicating childbirth (principal); Z37.0 Single live birth; E66.9 Obesity, unspecified; Z3A.39 39 weeks gestation of pregnancy; Z20.822 Contact with and (suspected) exposure to COVID-19; Z87.891 Personal history of nicotine dependence; Z88.2 Allergy status to sulfonamides
CPT/HCPCS: 36415; 59025; 59409; 82803; 85014; 85018; 85027; 86592; 86850; 86900; 86901; A9270-GY; J0595; J3010; J7120; U0002